=== PATIENT | female | born 1965 | race Caucasian/White ===

== ENCOUNTER 2022-10-17 13:16 | Outpatient (AMB) | payer BC, SELFPAY ==
--- NOTE | 2022-10-17 13:23 | A.OFFVIS_ITS ---
Intake Vital Signs 10/17/22 13:24 Weight 153 lb 3.54 oz BP 98/56 L Blood Pressure Location Lt brachial Position Sitting Pulse 84 Pulse Source Pulse Oximeter Pulse Oximetry (%) 97 Intake Visit Reasons: Shortness of breath Intake Note: due to finish prednisone 10mg in 2 days, will need refill on combivent if she is to continue Allergies No Known Allergies Allergy (Verified 10/17/22 13:27) Medication List - Last Reconciled 10/17/22 by Brianna Burris LPN atorvastatin 20 mg PO DAILY budesonide-formoterol 160-4.5 mcg/actuation (Symbicort) 2 puffs inhalation BID ipratropium-albuterol 20-100 mcg/actuation (Combivent Respimat) 1 puff inhalation Q4H sertraline 100 mg PO DAILY trazodone 50 mg PO DAILY HPI Shortness of breath HPI Details Stephanie is a pleasant 57 year old female, former smoker with 30 pack year history, quit March 2022, with underlying history of asthma and recent dx of SHANNON, not on CPAP therapy. She was referred by PCP for pulmonary evaluation. She reports since 12/2020, she has had a persistent cough with associated chest tightness, wheezing and dyspnea with exertion. She has been treated with prednisone with excellent response, but a few days to a week after completing taper, her symptoms return. She was also was treated recently with doxycycline and then augmentin for continued nonproductive cough with minimal improvement. She is currently on 10 mg of prednisone and will finish tomorrow. She is fearful that her symptoms will return. She was also recently started on symbicort, which she has been taking consistently for the past two weeks along with combivent PRN with good effect. She denies any any history of childhood asthma. She denies any family history of lung conditions, other than son with asthma. She reports intermittent allergic symptoms but none that are bothersome. She denies any pets. She denies any occupational exposures. She was also referred to discuss recent home sleep study which revealed moderate obstructive sleep apnea. She has not been started on CPAP therapy and is interested in starting the process. She currently reports significant daytime fatigue. She has had recent PFT, report below, as well as chest CT which we will request from PCP. [facility] Social History (Updated 08/15/23 @ 13:31 by Brianna Burris LPN) Patient Tobacco Use Status: Former Tobacco user Tobacco use type: Cigarette Cigarette Packs Per Day: 1 Cigarettes Per Day: 20 Years Smoked: 30 Review of Systems Const Denies chills, Denies excessive sweating, Denies fever(s), Denies headache(s) and Denies night sweats Eyes Denies dry eyes, Denies irritation and Denies itchy eyes ENT Reports Normal hearing present, Denies headache(s), Denies nasal congestion, Denies nasal discharge, Denies post nasal drip and Denies sore throat Card Denies chest pain, Denies chest pain at rest, Denies chest pain with activity, Denies claudication, Denies leg edema, Denies dyspnea, Denies orthopnea and Denies paroxysmal nocturnal dyspnea Resp Denies chest congestion, Denies excessive phlegm production, Denies pain on inspiration, Denies pain with cough, Denies dyspnea and Denies stridor Musc Denies myalgias Neuro Reports Normal hearing present and Denies headache(s) Endo Denies excessive sweating Jose A/Lymph Denies lymphadenopathy Aller/Immun Denies itchy eyes and Denies seasonal rhinorrhea Physical Exam Vital Signs: Last Vital Signs Pulse 84 10/17/22 13:24 BP 98/56 L 10/17/22 13:24 Pulse Ox 97 10/17/22 13:24 Const General: cooperative, healthy appearing, comfortable, no acute distress, well developed and alert Orientation/consciousness: patient oriented x3 Limitations: no limitations HEENT Head: Yes normal to inspection, Yes normocephalic and Yes atraumatic Ears: hearing grossly normal bilaterally and external ears normal Eyes General: appearance normal, both eyes and all related structures Eyelids: Yes eyelids normal Sclerae: sclerae normal EOM: EOMs intact bilaterally Neck Neck: Yes normal visual inspection and Yes no lymphadenopathy Lymphatic: no lymphadenopathy noted Chest Chest palpation & inspection: normal inspection of the chest Resp Effort & Inspection: normal respiratory effort, able to speak in complete sentences, no audible wheezes, no cough, no stridor, not tachypneic, no tripod positioning and no use of accessory muscles Auscultation: clear to auscultation bilaterally Cardio Jugular venous distension: no JVD Rate: regular rate Rhythm: regular rhythm Skin Other: warm, dry General skin exam: no rashes or lesions noted Neuro General: patient oriented x3 Cranial nerves: Yes Normal hearing present Cognition (Neuro): normal cognition Gait exam (Neuro): Normal gait present Extrem General: Yes normal to inspection, Yes capillary refill normal, Yes no clubbing, cyanosis or edema and Yes no pedal edema Psych Appearance: grossly normal and well kempt Speech and movement: Normal speech and movement present and Clear speech present Affect: normal affect Attitude: cooperative Thought process: Normal thought process present Thought content: Normal thought content present Insight: Good insight present (Psych) Judgement: Good judgement present (Psych) Results Reviewed Results Reviewed: Assessment & Plan Assessment & Plan (1) Asthma: Code(s): J45.909 - Unspecified asthma, uncomplicated (2) Obstructive sleep apnea: Code(s): G47.33 - Obstructive sleep apnea (adult) (pediatric) (3) Chronic cough: Code(s): R05.3 - Chronic cough Plan Reviewed PFT findings which revealed normal spirometry with good response to bronchodilaters, normal lung volumes and DLCO of 79. Full report above. Discussed the possibility of increasing symbicort and additional prednisone course, if symptoms return when prednisone taper ends. Patient aware to call. According to patient she is in a lung cancer screening program with PCP through [employer] [facility]) and has nodules, unsure size, that are stable and being monitored. Will obtain chest CT from PCP. CXR from 09/24/22 revealed streaky opacities and recommended follow up for resolution. Will send for repeat CXR in 6 weeks. Reviewed home sleep study which revealed an AHI of 23.4 reflective of moderate obstructive sleep apnea. The report recommended in lab polysomnography due to decreased oxygen saturation of <88% for 43 minutes, otherwise was generally between 88-91%. Will send for in lab study with evaluation of end tidal CO2. All questions were answered and patient is in agreement of plan. Will follow up after sleep study. Orders: Orders RT PSG in-lab sleep study Today G47.33 - Obstructive sleep apnea (adult) (pediatric), R09.02 - Hypoxemia XR chest 2V 11/29/22 R05.3 - Chronic cough Medications: New ipratropium-albuterol 20-100 mcg/actuation (Combivent Respimat) 1 puff inhalation Q4H 1 ea 3RF budesonide-formoterol 80-4.5 mcg/actuation (Symbicort) 2 puffs inhalation Q12H 3 ea 3RF Coding Level of Care Code New Pt Level 4 (86830) Diagnoses Asthma J45.909 Obstructive sleep apnea G47.33 Chronic cough R05.3
[2022-10-17 13:24] VITALS: BP 98/56; PULSE 84; O2SAT 97
== END 2022-10-17 14:14 | disposition home or self-care (01) ==
PROVIDERS: PCP Internal Medicine; Referring Provider Internal Medicine; Visit Provider Nurse Practitioner Family
DX: J45.909 Unspecified asthma, uncomplicated (principal); G47.33 Obstructive sleep apnea (adult) (pediatric); R05.3 Chronic cough
CPT/HCPCS: 99204

== ENCOUNTER → 2022-10-17 13:16 | Outpatient (BNVA) | payer BC, SELFPAY | PROVIDERS: PCP Internal Medicine; Visit Provider Nurse Practitioner Family ==

== ENCOUNTER → 2022-11-02 19:30 | Outpatient (REF) | payer BC, SELFPAY | LOC: HO.SL 19:30 | PROVIDERS: Visit Provider Nurse Practitioner Family | DX: G47.33 Obstructive sleep apnea (adult) (pediatric) (principal); R09.02 Hypoxemia | CPT/HCPCS: 95810 ==

== ENCOUNTER → 2022-11-02 22:48 | Outpatient (BNV) | payer BC, SELFPAY | PROVIDERS: Visit Provider Psychiatry & Neurology Neurology | DX: G47.33 Obstructive sleep apnea (adult) (pediatric) (principal) | CPT/HCPCS: 95810 ==

== ENCOUNTER 2022-12-20 08:11 | Outpatient (AMB) | payer BC, SELFPAY ==
--- NOTE | 2022-12-20 08:16 | A.OFFVIS_ITS ---
Intake Vital Signs 3 12/20/22 08:17 Height 5 ft 2 in Weight 155 lb BMI 28.3 BP 124/62 Blood Pressure Location Rt brachial Position Sitting Pulse 78 Pulse Source Pulse Oximeter Pulse Oximetry (%) 97 Oxygen Delivery Method Room Air Intake Visit Reasons: Shortness of breath Soa Architect Required: No Systems Analyst: Systems Analyst offered & declined Accompanied by: Self / Same As Patient Allergies No Known Allergies Allergy (Verified 12/20/22 08:22) Medication List - Last Reconciled 12/20/22 by Tamiko Chambers LPN atorvastatin 20 mg PO DAILY budesonide-formoterol 80-4.5 mcg/actuation (Symbicort) 2 puffs inhalation Q12H ipratropium-albuterol 20-100 mcg/actuation (Combivent Respimat) 1 puff inhalation Q4H sertraline 100 mg PO DAILY trazodone 50 mg PO DAILY HPI Shortness of breath 2 HPI0 Details Stephanie is a pleasant 57 year old female, former smoker with 30 pack year history, quit March 2022, with underlying history of asthma and SHANNON, not currently on CPAP therapy. At the last visit, she was placed on symbicort as she had a persistent cough with associated chest tightness, wheezing and dyspnea with exertion. Since using symbicort consistently she reports complete resolution of symptoms and has used combivent very infrequently.Today she presents for review in lab sleep study results. [facility] Social History (Updated 12/20/22 @ 08:23 by Tamiko Chambers LPN) Patient Tobacco Use Status: Former Tobacco user Tobacco use type: Cigarette Cigarette Packs Per Day: 1 Cigarettes Per Day: 20 Years Smoked: 30 Review of Systems Const Denies chills, Denies excessive sweating, Denies fever(s), Denies headache(s) and Denies night sweats Eyes Denies dry eyes, Denies irritation and Denies itchy eyes ENT Reports Normal hearing present, Denies headache(s), Denies nasal congestion, Denies nasal discharge, Denies post nasal drip and Denies sore throat Card Denies chest pain, Denies chest pain at rest, Denies chest pain with activity, Denies claudication, Denies leg edema, Denies dyspnea, Denies dyspnea on exertion, Denies orthopnea and Denies paroxysmal nocturnal dyspnea Resp Denies chest congestion, Denies cough, Denies excessive phlegm production, Denies pain on inspiration, Denies pain with cough, Denies dyspnea, Denies dyspnea on exertion, Denies stridor and Denies wheezing Musc Denies myalgias Neuro Reports Normal hearing present and Denies headache(s) Endo Denies excessive sweating Jose A/Lymph Denies lymphadenopathy Aller/Immun Denies itchy eyes, Denies seasonal rhinorrhea and Denies wheezing Physical Exam Vital Signs: Last Vital Signs Pulse 78 12/20/22 08:17 BP 124/62 12/20/22 08:17 Pulse Ox 97 12/20/22 08:17 Oxygen Delivery Method Room Air 12/20/22 08:17 BMI result Body Mass Index 28.3 Const General: cooperative, healthy appearing, comfortable, no acute distress, well developed and alert Orientation/consciousness: patient oriented x3 Limitations: no limitations HEENT Head: Yes normal to inspection, Yes normocephalic and Yes atraumatic Ears: hearing grossly normal bilaterally and external ears normal Eyes General: appearance normal, both eyes and all related structures Eyelids: Yes eyelids normal Sclerae: sclerae normal EOM: EOMs intact bilaterally Neck Neck: Yes normal visual inspection and Yes no lymphadenopathy Lymphatic: no lymphadenopathy noted Chest Chest palpation & inspection: normal inspection of the chest Resp Effort & Inspection: normal respiratory effort, able to speak in complete sentences, no audible wheezes, no cough, no stridor, not tachypneic, no tripod positioning and no use of accessory muscles Auscultation: clear to auscultation bilaterally Cardio Jugular venous distension: no JVD Rate: regular rate Rhythm: regular rhythm Skin Other: warm, dry General skin exam: no rashes or lesions noted Neuro General: patient oriented x3 Cranial nerves: Yes Normal hearing present Cognition (Neuro): normal cognition Gait exam (Neuro): Normal gait present Extrem General: Yes normal to inspection, Yes capillary refill normal, Yes no clubbing, cyanosis or edema and Yes no pedal edema Psych Appearance: grossly normal and well kempt Speech and movement: Normal speech and movement present and Clear speech present Affect: normal affect Attitude: cooperative Thought process: Normal thought process present Thought content: Normal thought content present Insight: Good insight present (Psych) Judgement: Good judgement present (Psych) Results Reviewed Results Reviewed: Assessment & Plan Assessment & Plan (1) Asthma: Code(s): J45.909 - Unspecified asthma, uncomplicated (2) Obstructive sleep apnea: Code(s): G47.33 - Obstructive sleep apnea (adult) (pediatric) (3) Nocturnal hypoxemia: Code(s): G47.34 - Idiopathic sleep related nonobstructive alveolar hypoventilation Plan Reviewed in lab sleep study which revealed moderate obstructive sleep apnea and nocturnal hypoxia, full report above. Since patient is quite symptomatic, will start CPAP therapy. Will send in prescription for APAP mode and pressure settings of 5-20 cm with close monitoring for compliance and benefits. Sleep hygiene education reviewed. She is aware if there are any issues with the mask or CPAP machine, she will call the office. Advised to continue current regimen with symbicort and combivent PRN. Will obtain CXR to ensure complete resolution of streaky opacities, she is requesting this to be performed at [facility]. All questions were answered and patient is in agreement of plan. Will follow up in 8 weeks. Coding Level of Care Code Est Pt Level 4 (28535) Diagnoses Asthma J45.909 Obstructive sleep apnea G47.33 Nocturnal hypoxemia G47.34
[2022-12-20 08:17] VITALS: BP 124/62; PULSE 78; O2SAT 97; BMI 28.3
== END 2022-12-20 08:44 | disposition home or self-care (01) ==
LOC: HO.HPS 08:11
PROVIDERS: PCP Internal Medicine; Visit Provider Nurse Practitioner Family
DX: J45.909 Unspecified asthma, uncomplicated (principal); G47.33 Obstructive sleep apnea (adult) (pediatric); G47.34 Idiopathic sleep related nonobstructive alveolar hypoventilation
CPT/HCPCS: 99214

== ENCOUNTER → 2022-12-20 08:11 | Outpatient (BNVA) | payer BC, SELFPAY | PROVIDERS: PCP Internal Medicine; Visit Provider Nurse Practitioner Family ==

== ENCOUNTER 2023-02-14 09:13 | Outpatient (AMB) | payer BC, SELFPAY ==
[2023-02-14 09:29] VITALS: BP 132/78; PULSE 78; O2SAT 97; BMI 29.1
--- NOTE | 2023-02-14 09:29 | MHC.OFFVIS ---
Intake Vital Signs 02/14/23 09:29 Height 5 ft 2 in Weight 159 lb BMI 29.1 BP 132/78 Blood Pressure Location Rt brachial Position Sitting Pulse 78 Pulse Source Pulse Oximeter Pulse Oximetry (%) 97 Oxygen Delivery Method Room Air Intake Visit Reasons: shortness of breath : 8 week f/u Staff Weapons Officer Required: No Residential Electrician: Residential Electrician offered & declined Accompanied by: Self / Same As Patient Allergies No Known Allergies Allergy (Verified 02/14/23 09:36) Medication List - Last Reconciled 02/14/23 by Tamiko Chambers LPN atorvastatin 20 mg PO DAILY budesonide-formoterol 80-4.5 mcg/actuation (Symbicort) 2 puffs inhalation Q12H ipratropium-albuterol 20-100 mcg/actuation (Combivent Respimat) 1 puff inhalation Q4H sertraline 100 mg PO DAILY trazodone 50 mg PO DAILY HPI shortness of breath : 8 week f/u HPI Details Stephanie is a pleasant 57 year old female, former smoker with 30 pack year history, quit March 2022, with underlying history of asthma and SHANNON. She reports her respiratory symptoms are well controlled on Symbicort. At the last visit, CPAP therapy was ordered. Today she presents to review CPAP therapy. She reports using a nasal mask and receives supplies through [facility]. She feels as though she has restorative sleep since starting and has not had any issues with use. She currently denies any respiratory symptoms. [facility] Social History (Updated 02/14/23 @ 09:38 by Tamiko Chambers LPN) Patient Tobacco Use Status: Former Tobacco user Tobacco use type: Cigarette Cigarette Packs Per Day: 1 Cigarettes Per Day: 20 Years Smoked: 30 Review of Systems Const Denies chills, Denies excessive sweating, Denies fever(s), Denies headache(s) and Denies night sweats Eyes Denies dry eyes, Denies irritation and Denies itchy eyes ENT Reports Normal hearing present, Denies headache(s), Denies nasal congestion, Denies nasal discharge, Denies post nasal drip and Denies sore throat Card Denies chest pain, Denies chest pain at rest, Denies chest pain with activity, Denies claudication, Denies leg edema, Denies dyspnea, Denies dyspnea on exertion, Denies orthopnea and Denies paroxysmal nocturnal dyspnea Resp Denies chest congestion, Denies cough, Denies excessive phlegm production, Denies pain on inspiration, Denies pain with cough, Denies dyspnea, Denies dyspnea on exertion, Denies stridor and Denies wheezing Musc Denies myalgias Neuro Reports Normal hearing present and Denies headache(s) Endo Denies excessive sweating Jose A/Lymph Denies lymphadenopathy Aller/Immun Denies itchy eyes, Denies seasonal rhinorrhea and Denies wheezing Physical Exam Vital Signs: Last Vital Signs Pulse 78 02/14/23 09:29 BP 132/78 02/14/23 09:29 Pulse Ox 97 02/14/23 09:29 Oxygen Delivery Method Room Air 02/14/23 09:29 BMI result Body Mass Index 29.1 Const General: cooperative, healthy appearing, comfortable, no acute distress, well developed and alert Orientation/consciousness: patient oriented x3 Limitations: no limitations HEENT Head: Yes normal to inspection, Yes normocephalic and Yes atraumatic Ears: hearing grossly normal bilaterally and external ears normal Eyes General: appearance normal, both eyes and all related structures Eyelids: Yes eyelids normal Sclerae: sclerae normal EOM: EOMs intact bilaterally Neck Neck: Yes normal visual inspection and Yes no lymphadenopathy Lymphatic: no lymphadenopathy noted Chest Chest palpation & inspection: normal inspection of the chest Resp Effort & Inspection: normal respiratory effort, able to speak in complete sentences, no audible wheezes, no cough, no stridor, not tachypneic, no tripod positioning and no use of accessory muscles Auscultation: clear to auscultation bilaterally Cardio Jugular venous distension: no JVD Rate: regular rate Rhythm: regular rhythm Skin Other: warm, dry General skin exam: no rashes or lesions noted Neuro General: patient oriented x3 Cranial nerves: Yes Normal hearing present Cognition (Neuro): normal cognition Gait exam (Neuro): Normal gait present Extrem General: Yes normal to inspection, Yes capillary refill normal, Yes no clubbing, cyanosis or edema and Yes no pedal edema Psych Appearance: grossly normal and well kempt Speech and movement: Normal speech and movement present and Clear speech present Affect: normal affect Attitude: cooperative Thought process: Normal thought process present Thought content: Normal thought content present Insight: Good insight present (Psych) Judgement: Good judgement present (Psych) Assessment & Plan Assessment & Plan (1) Asthma: Code(s): J45.909 - Unspecified asthma, uncomplicated (2) Obstructive sleep apnea: Code(s): G47.33 - Obstructive sleep apnea (adult) (pediatric) Plan Patient reports respiratory symptoms have been controlled on symbicort, advised to continue current regimen. Reviewed compliance report and patient has been using CPAP therapy >4 hours for >70% of the time. She feels symptomatic relief with CPAP therapy and is enthusiastic about continuing. She is aware if there are any issues with the mask or CPAP machine, she will call the office. Once using for 3-6 months, will send for overnight oximetry to ensure CPAP therapy has corrected nocturnal hypoxia. All questions were answered and patient is in agreement of plan. Will follow up in 6 months or sooner if needed. Coding Level of Care Code Est Pt Level 3 (90293) Diagnoses Asthma J45.909 Obstructive sleep apnea G47.33
== END 2023-02-14 09:56 | disposition home or self-care (01) ==
PROVIDERS: PCP Internal Medicine; Visit Provider Nurse Practitioner Family
DX: J45.909 Unspecified asthma, uncomplicated (principal); G47.33 Obstructive sleep apnea (adult) (pediatric)
CPT/HCPCS: 99213

== ENCOUNTER → 2023-02-14 09:13 | Outpatient (BNVA) | payer BC, SELFPAY | PROVIDERS: PCP Internal Medicine; Visit Provider Nurse Practitioner Family ==

== ENCOUNTER 2023-08-15 09:22 | Outpatient (AMB) | payer BC, SELFPAY ==
--- NOTE | 2023-08-15 09:27 | A.OFFVIS_ITS ---
Vital Signs 08/15/23 09:28 Height 5 ft 2 in Weight 161 lb 6 oz BMI 29.5 BP 110/70 Blood Pressure Location Rt brachial Position Sitting Pulse 72 Pulse Source Pulse Oximeter Pulse Oximetry (%) 98 Oxygen Delivery Method Room Air Intake Visit Reasons: shortness of breath: 6 month f/u Allergies No Known Allergies Allergy (Verified 08/15/23 09:32) HPI HPI shortness of breath: 6 month f/u: Details: Stephanie is a pleasant 58 year old female, current smoker with 30 pack year history, quit March 2022 however restarted recently with underlying history of asthma and SHANNON. She reports her respiratory symptoms are well controlled on Symbicort . Today she presents to review compliance with CPAP therapy. She reports using a nasal mask and receives supplies through [facility]. She reports good symptomatic control with CPAP therapy and currently denies any respiratory symptoms. Since the last visit, she was evaluated at urgent care in May requiring prednisone due to asthma exacerbation. [facility] Social History (Updated 08/15/23 @ 09:32 by Bhavya Ruelas [facility]) Patient Tobacco Use Status: Current everyday Tobacco user Tobacco use type: Cigarette Cigarette Packs Per Day: 0.5 Cigarettes Per Day: 10 Years Smoked: 30 Review of Systems Const Denies chills, Denies excessive sweating, Denies fever(s), Denies headache(s) and Denies night sweats Eyes Denies dry eyes, Denies irritation and Denies itchy eyes ENT Reports Normal hearing present, Denies headache(s), Denies nasal congestion, Denies nasal discharge, Denies post nasal drip and Denies sore throat Card Denies chest pain, Denies chest pain at rest, Denies chest pain with activity, Denies claudication, Denies leg edema, Denies dyspnea, Denies dyspnea on ex ertion, Denies orthopnea and Denies paroxysmal nocturnal dyspnea Resp Denies chest congestion, Denies cough, Denies excessive phlegm production, Denies pain on inspiration, Denies pain with cough, Denies dyspnea, Denies dyspnea on exertion, Denies stridor and Denies wheezing Neuro Reports Normal hearing present and Denies headache(s) Endo Denies excessive sweating Jose A/Lymph Denies lymphadenopathy Aller/Immun Denies itchy eyes, Denies seasonal rhinorrhea and Denies wheezing Physical Exam Vital Signs: Last Vital Signs Pulse 72 08/15/23 09:28 BP 110/70 08/15/23 09:28 Pulse Ox 98 08/15/23 09:28 Oxygen Delivery Method Room Air 08/15/23 09:28 BMI result Body Mass Index 29.5 Const General: cooperative, healthy appearing, comfortable, no acute distress, well developed and alert Orientation/consciousness: patient oriented x3 Limitations: no limitations HEENT Head: Yes normal to inspection, Yes normocephalic and Yes atraumatic Ears: hearing grossly normal bilaterally and external ears normal Eyes General: appearance normal, both eyes and all related structures Eyelids: Yes eyelids normal Sclerae: sclerae normal EOM: EOMs intact bilaterally Neck Neck: Yes normal visual inspection and Yes no lymphadenopathy Lymphatic: no lymphadenopathy noted Chest Chest palpation & inspection: normal inspection of the chest Resp Effort & Inspection: normal respiratory effort, able to speak in complete sentences, no audible wheezes, no cough, no stridor, not tachypneic, no tripod positioning and no use of accessory muscles Auscultation: clear to auscultation bilaterally Cardio Jugular venous distension: no JVD Rate: regular rate Rhythm: regular rhythm Skin Other: warm, dry General skin exam: no rashes or lesions noted Neuro General: patient oriented x3 Cranial nerves: Yes Normal hearing present Cognition (Neuro): normal cognition Gait exam (Neuro): Normal gait present Extrem Other: right ankle orthotic s/p ankle fracture repair Psych Appearance: grossly normal and well kempt Speech and movement: Normal speech and movement present and Clear speech present Affect: normal affect Attitude: cooperative Thought process: Normal thought process present Thought content: Normal thought content present Insight: Good insight present (Psych) Judgement: Good judgement present (Psych) Assessment & Plan Assessment & Plan (1) Asthma: Code(s): J45.909 - Unspecified asthma, uncomplicated Category: Medical (2) Obstructive sleep apnea: Code(s): G47.33 - Obstructive sleep apnea (adult) (pediatric) Category: Medical (3) Nocturnal hypoxemia: Code(s): G47.34 - Idiopathic sleep related nonobstructive alveolar hypoventilation Category: Medical Plan Patient reports respiratory symptoms have been controlled on symbicort, advised to continue current regimen.Will send refills. Reviewed compliance report and patient has been using CPAP therapy >4 hours for >70% of the time, minimal leaks and AHI <2. Will send for overnight oximetry to ensure CPAP therapy has corrected nocturnal hypoxia. All questions were answered and patient is in agreement of plan. Will follow up in 6 months or sooner if needed. Orders: Orders Overnight Pulse Oximetry Today G47.34 - Idiopathic sleep related nonobstructive alveolar hypoventilation Medications: Refilled ipratropium-albuterol 20-100 mcg/actuation (Combivent Respimat) 1 puff inhalation Q4H 1 ea 3RF budesonide-formoterol 80-4.5 mcg/actuation (Symbicort) 2 puffs inhalation Q12H 3 ea 3RF Coding Level of Care Code Est Pt Level 4 (49035) Diagnoses Asthma J45.909 Obstructive sleep apnea G47.33 Nocturnal hypoxemia G47.34
[2023-08-15 09:28] VITALS: BP 110/70; PULSE 72; O2SAT 98; BMI 29.5
== END 2023-08-15 10:01 | disposition home or self-care (01) ==
PROVIDERS: PCP Internal Medicine; Visit Provider Nurse Practitioner Family
DX: J45.909 Unspecified asthma, uncomplicated (principal); G47.33 Obstructive sleep apnea (adult) (pediatric); G47.34 Idiopathic sleep related nonobstructive alveolar hypoventilation
CPT/HCPCS: 99214

== ENCOUNTER → 2023-08-15 09:22 | Outpatient (BNVA) | payer BC, SELFPAY | PROVIDERS: PCP Internal Medicine; Visit Provider Nurse Practitioner Family ==

== ENCOUNTER 2024-02-13 09:14 | Outpatient (AMB) | payer BC, SELFPAY ==
[2024-02-13 09:15] VITALS: BP 112/68; PULSE 71; O2SAT 97; BMI 30.6
--- NOTE | 2024-02-13 09:15 | A.OFFVIS_ITS ---
Vital Signs 02/13/24 09:15 Height 5 ft 2 in Weight 167 lb 8 oz BMI 30.6 BP 112/68 Blood Pressure Location Rt brachial Position Sitting Pulse 71 Pulse Source Pulse Oximeter Pulse Oximetry (%) 97 Oxygen Delivery Method Room Air Intake Visit Reasons: shortness of breath: 6 month f/u Allergies No Known Allergies Allergy (Verified 02/13/24 09:18) HPI HPI shortness of breath: 6 month f/u: Details: Stephanie is a pleasant 58 year old female, current smoker with 30 pack year history with underlying history of asthma and SHANNON on CPAP therapy. Today she presents to for routine follow up. She reports her respiratory symptoms are well controlled on Symbicort and albuterol MDI. She denies any visits to urgent care hospitalizations related to respiratory distress since the last visit. Compliance report reviewed, patient has been using >4 hours 60% of the time on average using 6 hours per night, AHI less than 1 with minimal leaking. APAP mode 5-16 cm H2O. DME is regional. PFSH Social History Patient Tobacco Use Status: Current everyday Tobacco user Tobacco use type: Cigarette Cigarette Packs Per Day: 0.5 Cigarettes Per Day: 10 Years Smoked: 30 Review of Systems Const Denies chills, Denies excessive sweating, Denies fever(s), Denies headache(s) and Denies night sweats Eyes Denies dry eyes, Denies irritation and Denies itchy eyes ENT Reports Normal hearing present, Denies headache(s), Denies nasal congestion, Denies nasal discharge, Denies post nasal drip and Denies sore throat Card Denies chest pain, Denies chest pain at rest, Denies chest pain with activity, Denies claudication, Denies leg edema, Denies dyspnea, Denies dyspnea on exertion, Denies orthopnea and Denies paroxysmal nocturnal dyspnea Resp Denies chest congestion, Denies cough, Denies excessive phlegm production, Denies pain on inspiration, Denies pain with cough, Denies dyspnea, Denies dyspnea on exertion, Denies stridor and Denies wheezing Neuro Reports Normal hearing present and Denies headache(s) Endo Denies excessive sweating Jose A/Lymph Denies lymphadenopathy Aller/Immun Denies itchy eyes, Denies seasonal rhinorrhea and Denies wheezing Physical Exam Vital Signs: Last Vital Signs Pulse 71 02/13/24 09:15 BP 112/68 02/13/24 09:15 Pulse Ox 97 02/13/24 09:15 Oxygen Delivery Method Room Air 02/13/24 09:15 BMI result Body Mass Index 30.6 Const General: cooperative, healthy appearing, comfortable, no acute distress, well developed and alert Orientation/consciousness: patient oriented x3 Limitations: no limitations HEENT Head: Yes normal to inspection, Yes normocephalic and Yes atraumatic Ears: hearing grossly normal bilaterally and external ears normal Eyes General: appearance normal, both eyes and all related structures Eyelids: Yes eyelids normal Sclerae: sclerae normal EOM: EOMs intact bilaterally Neck Neck: Yes normal visual inspection and Yes no lymphadenopathy Lymphatic: no lymphadenopathy noted Chest Chest palpation & inspection: normal inspection of the chest Resp Effort & Inspection: normal respiratory effort, able to speak in complete sentences, no audible wheezes, no cough, no stridor, not tachypneic, no tripod positioning and no use of accessory muscles Auscultation: clear to auscultation bilaterally Cardio Jugular venous distension: no JVD Rate: regular rate Rhythm: regular rhythm Skin Other: warm, dry General skin exam: no rashes or lesions noted Neuro General: patient oriented x3 Cranial nerves: Yes Normal hearing present Cognition (Neuro): normal cognition Gait exam (Neuro): Normal gait present Psych Appearance: grossly normal and well kempt Speech and movement: Normal speech and movement present and Clear speech present Affect: normal affect Attitude: cooperative Thought process: Normal thought process present Thought content: Normal thought content present Insight: Good insight present (Psych) Judgement: Good judgement present (Psych) Results Reviewed Results Reviewed: RESULT: CT Chest LDCT Lung Program CT Chest LDCT Lung Program Reason: Other:; LDCT LUNG CANCER SCREENING PROGRAM, CURRENT SMOKER, 39 PACK YEAR HX; Clinical Question(s): Other:; Special Instructions: BOOK AT [address] [place] [address] BOOK AFTER 05 [address] IN THE LAST 12 MONTHS NO LUNG CA OR SIGNS AND SYMPTOMS OF LUNG CA Visit type: Annual Screening TECHNIQUE: Low-dose helical CT of the chest without IV contrast (Adult Lung Cancer Screening) protocol was performed. Coronal reformats were obtained. Weight-based protocol using automatic tube modulation was used to optimize exposure parameters. CTDIvol Body: 2.84 mGy, DLP Body: 90 mGy*cm. COMPARISON: 05/30/2022 FINDINGS: LUNG NODULES: RIGHT lung: No new pulmonary nodules. Unchanged in size and appearance 6 x 5 mm nodule in the right lower lobe series 4 image 222, compared to prior exam series 4 image 214. Unchanged granulomas, 2 mm in the right lower lobe image 188 and at the right apex at image 58 and 88. LEFT lun new groundglass nodules measuring 4 mm and 5 mm at series 4 image 84 in the medial aspect of the superior segment of the left lower lobe. OTHER FINDINGS: Trachea and Airways: Patent without evidence of tracheal or endobronchial lesion. Lungs and Pleura: Very minimal paraseptal emphysema at the apices. Left lung base atelectasis or scarring, minimal and unchanged. No pneumothorax or pleural effusion. Mediastinum and Lymph nodes: No enlarged lymph nodes. Esophagus is unremarkable. Partially seen thyroid gland shows subcentimeter left nodule, not meeting criteria for further evaluation based on size. Next Heart: Normal cardiac size. No pericardial effusion. No coronary artery calcifications. Aorta: Mild vascular calcification but no aneurysm. Pulmonary arteries: Nonenlarged main pulmonary artery. Chest wall and Soft tissues: No axillary adenopathy. No acute abnormality. Diaphragm and Upper Abdomen: Limited images of the upper most abdomen show no acute abnormality. There is a small splenic. Bones: No suspicious osseous abnormalities. Healed deformity of remote left anterolateral rib fracture, unchanged. Mild diffuse osteopenia. IMPRESSION: 1. 2 new groundglass nodules in the left lower lobe, 4 mm and 5 mm. LungRad Category: 2 Benign Appearance or Behavior. Nodules with a very low likelihood of becoming a clinically active cancer due to size or lack of growth. Continue annual screening with LDCT in 12 months. 2. No significant additional findings requiring further evaluation. Lung-RAD Category Modifier: None. Categorization based on Lung-RADS 2022 criteria. [email or web address] WSN: [id number] Ordering Physician: Chalino Villela Assessment & Plan Assessment & Plan (1) Asthma: Code(s): J45.909 - Unspecified asthma, uncomplicated Category: Medical (2) Obstructive sleep apnea: Code(s): G47.33 - Obstructive sleep apnea (adult) (pediatric) Category: Medical (3) Multiple pulmonary nodules: Code(s): R91.8 - Other nonspecific abnormal finding of lung field Category: Medical Plan Reviewed LDCT from 05/2023-RADS 2 through [facility]. Patient reports respiratory symptoms have been well controlled on symbicort and combivent, advised to continue current regimen.Will send refills. Reviewed compliance report and patient has been using CPAP therapy >4 hours for >60% of the time, minimal leaks and AHI <1. Patient motivated to be more compliant. Discussed smoking cessation and patient interested in NRT. Patches and and nicorette rx sent. All questions were answered and patient is in agreement of plan. Will follow up in 6 months or sooner if needed. Medications: New nicotine apply 1-21 mg NICOTINE PATCH daily for 28 days; follow with 1-14 mg PATCH daily for 14 days, then 1-7mg PATCH daily for 14 days transdermal 56 patches 0RF nicotine (polacrilex) (Nicorette) 2 mg buccal Q2H 50 ea 0RF Refilled ipratropium-albuterol 20-100 mcg/actuation (Combivent Respimat) 1 puff inhalation Q4H 1 ea 3RF budesonide-formoterol 80-4.5 mcg/actuation (Symbicort) 2 puffs inhalation Q12H 3 ea 3RF J45.909 - Unspecified asthma, uncomplicated budesonide-formoterol 80-4.5 mcg/actuation (Symbicort) 2 puffs inhalation Q12H 3 ea 3RF Coding Level of Care Code Est Pt Level 4 (81908) Diagnoses Asthma J45.909 Obstructive sleep apnea G47.33 Multiple pulmonary nodules R91.8
== END 2024-02-13 09:43 | disposition home or self-care (01) ==
PROVIDERS: PCP Internal Medicine; Visit Provider Nurse Practitioner Family
DX: J45.909 Unspecified asthma, uncomplicated (principal); G47.33 Obstructive sleep apnea (adult) (pediatric); R91.8 Other nonspecific abnormal finding of lung field
CPT/HCPCS: 99214

== ENCOUNTER 2024-09-19 14:16 | Outpatient (AMB) | payer BC, SELFPAY ==
--- NOTE | 2024-09-19 14:18 | MHC.OFFVIS ---
Vital Signs 09/19/24 14:19 Height 5 ft 2 in Weight 157 lb BMI 28.7 BP 122/66 Blood Pressure Location Rt brachial Position Sitting Pulse 72 Pulse Source Pulse Oximeter Pulse Oximetry (%) 99 Oxygen Delivery Method Room Air Intake Visit Reasons: Shortness of breath Cryptologic Technician Operator/Analyst Required: No Name Plate Stamping Machine Operator: Name Plate Stamping Machine Operator offered & declined Accompanied by: Self / Same As Patient Allergies No Known Allergies Allergy (Verified 09/19/24 14:24) Medication List - Last Reconciled 09/19/24 by Tamiko Chambers LPN atorvastatin 20 mg PO DAILY budesonide-formoterol 80-4.5 mcg/actuation 2 puffs inhalation Q12H ipratropium-albuterol 20-100 mcg/actuation (Combivent Respimat) 1 puff inhalation Q4H nicotine apply 1-21 mg NICOTINE PATCH daily for 28 days; follow with 1-14 mg PATCH daily for 14 days, then 1-7mg PATCH daily for 14 days transdermal nicotine (polacrilex) (Nicorette) 2 mg buccal Q2H sertraline 100 mg PO DAILY trazodone 50 mg PO DAILY HPI HPI Shortness of breath: Details: Stephanie is a pleasant 59 year old female, current smoker with 30 pack year history with underlying history of asthma and SHANNON on CPAP therapy. Today she presents to for routine follow up. She reports increased use of Combivent every four hours during humid periods, although she has not needed it for the past couple of weeks. Symptoms included shortness of breath and chest tightness, which improved with better weather conditions. She denies any visits to urgent care hospitalizations related to respiratory distress since the last visit. Compliance report reviewed, patient has been using >4 hours 90% of the time, AHI less than 1 with minimal leaking. APAP mode 5-16 cm H2O. DME is regional. She experiences occasional mask leakage and facial indentations but reports feeling more energetic with CPAP use. The patient has a history of tobacco use disorder and is currently smoking about half a pack per day, with variations depending on conditions such as humidity. She has previously used Chantix successfully and plans to restart it soon. LDCT through [facility] performed which revealed a stable nodule in the right lower lobe and resolved nodules in the left lower lobe, likely due to a past infection or inflammation, RADS 2 and will have annual LDCT scheduled 05/2025. [facility] Social History Patient Tobacco Use Status: Current everyday Tobacco user Tobacco use type: Cigarette Cigarette Packs Per Day: 0.5 Cigarettes Per Day: 10 Years Smoked: 30 Review of Systems Const Denies chills, Denies excessive sweating, Denies fever(s), Denies headache(s) and Denies night sweats Eyes Denies dry eyes, Denies irritation and Denies itchy eyes ENT Reports Normal hearing present, Denies headache(s), Denies nasal congestion, Denies nasal discharge, Denies post nasal drip and Denies sore throat Card Denies chest pain, Denies chest pain at rest, Denies chest pain with activity, Denies claudication, Denies leg edema, Denies orthopnea and Denies paroxysmal nocturnal dyspnea Resp Denies chest congestion, Denies excessive phlegm production, Denies pain on inspiration, Denies pain with cough and Denies stridor Neuro Reports Normal hearing present and Denies headache(s) Endo Denies excessive sweating Jose A/Lymph Denies lymphadenopathy Aller/Immun Denies itchy eyes and Denies seasonal rhinorrhea Physical Exam Vital Signs: Last Vital Signs Pulse 72 09/19/24 14:19 BP 122/66 09/19/24 14:19 Pulse Ox 99 09/19/24 14:19 Oxygen Delivery Method Room Air 09/19/24 14:19 BMI result Body Mass Index 28.7 Const General: cooperative, healthy appearing, comfortable, no acute distress, well developed and alert Orientation/consciousness: patient oriented x3 Limitations: no limitations HEENT Head: Yes normal to inspection, Yes normocephalic and Yes atraumatic Ears: hearing grossly normal bilaterally and external ears normal Eyes General: appearance normal, both eyes and all related structures Eyelids: Yes eyelids normal Sclerae: sclerae normal EOM: EOMs intact bilaterally Neck Neck: Yes normal visual inspection and Yes no lymphadenopathy Lymphatic: no lymphadenopathy noted Chest Chest palpation & inspection: normal inspection of the chest Resp Effort & Inspection: normal respiratory effort, able to speak in complete sentences, no audible wheezes, no cough, no stridor, not tachypneic, no tripod positioning and no use of accessory muscles Auscultation: clear to auscultation bilaterally Cardio Jugular venous distension: no JVD Rate: regular rate Rhythm: regular rhythm Skin Other: warm, dry General skin exam: no rashes or lesions noted Neuro General: patient oriented x3 Cranial nerves: Yes Normal hearing present Cognition (Neuro): normal cognition Gait exam (Neuro): Normal gait present Psych Appearance: grossly normal and well kempt Speech and movement: Normal speech and movement present and Clear speech present Affect: normal affect Attitude: cooperative Thought process: Normal thought process present Thought content: Normal thought content present Insight: Good insight present (Psych) Judgement: Good judgement present (Psych) Results Reviewed Results Reviewed: RESULT: CT Chest LDCT Lung Program CT Chest LDCT Lung Program Reason: Other:; LDCT LUNG CANCER SCREENING PROGRAM, CURRENT SMOKER, 40 PACK YEAR HX; Clinical Question(s): Other:; Special Instructions: BOOK AT [address] [place] [address] BOOK AFTER 05 [address] IN THE LAST 12 MONTHS NO LUNG CA OR SIGNS AND SYMPTOMS OF LUNG CA Visit type: Annual Screening TECHNIQUE: Low-dose helical CT of the chest without IV contrast (Adult Lung Cancer Screening) protocol was performed. Coronal reformats were obtained. Weight-based protocol using automatic tube modulation was used to optimize exposure parameters. CTDIvol Body: 2.77 mGy, DLP Body: 95 mGy*cm. COMPARISON: 06/01/2023 FINDINGS: LUNG NODULES (measured on thin axial series 4): RIGHT lung: Stable 6 x 5 mm subpleural nodule in the right lower lobe (217) Few scattered micronodules, stable. No new or enlarging nodules. LEFT lung: Resolution of the previously seen two small groundglass nodular opacities in the apical segment of the left lower lobe. No suspicious or new nodules seen. OTHER FINDINGS: Continuous Mining Machine Lode Miner view findings, lines and tubes: None. Trachea and airways: Patent without evidence of tracheal or endobronchial lesion. Lungs and pleura: No focal pulmonary consolidation. Minimal biapical paraseptal and centrilobular emphysema. Minimal left basilar linear scarring. No effusion or pneumothorax. Mediastinum and rhonda: No mass or hematoma. No mediastinal or hilar lymphadenopathy. No esophageal abnormality. Heart: Heart is normal in size. No pericardial effusion. Aorta: Mild vascular calcification but no aneurysm. Pulmonary arteries: Normal caliber. Chest wall soft tissues: No acute abnormality. Diaphragm: Intact. Upper abdomen: Diverticulosis Bones: No acute abnormality. IMPRESSION: 1. LungRad Category: 2 Benign Appearance or Behavior. Nodules with a very low likelihood of becoming a clinically active cancer due to size or lack of growth. Continue annual screening with LDCT in 12 months. 2. S : Significant additional findings likely require further evaluation. Diverticulosis Categorization based on Lung-RADS 2021 criteria. [email or web address] WSN: [id number] Ordering Physician: Chalino Villela Reason For Exam LDCT LUNG CANCER SCREENING PROGRAM, CURRENT SMOKER, 40 PACK YEAR HX;Other: Assessment & Plan Assessment & Plan (1) Asthma: Code(s): J45.909 - Unspecified asthma, uncomplicated Category: Medical (2) Obstructive sleep apnea: Code(s): G47.33 - Obstructive sleep apnea (adult) (pediatric) Category: Medical (3) Multiple pulmonary nodules: Code(s): R91.8 - Other nonspecific abnormal finding of lung field Category: Medical Plan The plan includes increasing the dose of Symbicort to manage respiratory symptoms, with instructions to use two puffs twice daily and rinse the mouth after use. The patient is advised to continue using CPAP therapy and consider trying different masks to address facial indentations and leakage issues. Chantix will be restarted to aid in smoking cessation. LDCT 05/2024 RADS2 and will have annual LDCT scheduled through [facility]. All questions were answered and patient is in agreement of plan. Will follow up in 6-8 weeks or sooner if needed. Medications: New budesonide-formoterol 160-4.5 mcg/actuation (Symbicort) 2 puffs inhalation Q12H 10.2 grams 3RF Changed From ipratropium-albuterol 20-100 mcg/actuation (Combivent Respimat) 1 puff inhalation Q4H 1 ea 3RF To ipratropium-albuterol 20-100 mcg/actuation (Combivent Respimat) 1 puff inhalation Q4H PRN 1 ea 3RF shortness of breath or wheezing Discontinued budesonide-formoterol 80-4.5 mcg/actuation Discontinued Reason: Patient Completed Course 2 puffs inhalation Q12H 10.2 grams 3RF J45.909 - Unspecified asthma, uncomplicated Coding Level of Care Code Est Pt Level 4 (63290) Diagnoses Asthma J45.909 Obstructive sleep apnea G47.33 Multiple pulmonary nodules R91.8
[2024-09-19 14:19] VITALS: BP 122/66; PULSE 72; O2SAT 99; BMI 28.7
== END 2024-09-19 14:44 | disposition home or self-care (01) ==
LOC: HO.HPSW 14:16
PROVIDERS: PCP Internal Medicine; Visit Provider Nurse Practitioner Family
DX: J45.909 Unspecified asthma, uncomplicated (principal); G47.33 Obstructive sleep apnea (adult) (pediatric); R91.8 Other nonspecific abnormal finding of lung field
CPT/HCPCS: 99214

== ENCOUNTER 2025-01-07 13:11 | Outpatient (AMB) | payer BC, SELFPAY ==
[2025-01-07 13:14] VITALS: BP 110/58; PULSE 79; O2SAT 98; BMI 30.8
--- NOTE | 2025-01-07 13:14 | A.OFFVIS_ITS ---
Vital Signs 01/07/25 13:14 Height 5 ft 2 in Weight 168 lb 8 oz BMI 30.8 BP 110/58 L Blood Pressure Location Lt brachial Position Sitting Pulse 79 Pulse Source Pulse Oximeter Pulse Oximetry (%) 98 Oxygen Delivery Method Room Air Intake Visit Reasons: Shortness of breath Allergies No Known Allergies Allergy (Verified 01/07/25 13:19) HPI HPI Shortness of breath: Details: Stephanie is a pleasant 59 year old female, former 30 pack-year smoker, quit in August 2024 with underlying history of asthma and SHANNON on CPAP therapy. Patient has been using Symbicort 160 mcg 2 inhalations b.i.d. with good effect, rarely using Combivent. She denies any visits to urgent care hospitalizations related to respiratory distress since the last visit. Today she presents to review compliance report for CPAP therapy. LDCT through [facility] RADS 2 and will have annual LDCT scheduled 05/2025. [facility] Social History (Updated 01/07/25 @ 13:19 by Bhavya Ruelas [facility]) Patient Tobacco Use Status: Former Tobacco user Tobacco use type: Cigarette Years Smoked: 30 Review of Systems Const Denies chills, Denies excessive sweating, Denies fever(s), Denies headache(s) and Denies night sweats Eyes Denies dry eyes, Denies irritation and Denies itchy eyes ENT Reports Normal hearing present, Denies headache(s), Denies nasal congestion, Denies nasal discharge, Denies post nasal drip and Denies sore throat Card Denies chest pain, Denies chest pain at rest, Denies chest pain with activity, Denies claudication, Denies leg edema, Denies dyspnea on exertion, Denies orthopnea and Denies paroxysmal nocturnal dyspnea Resp Denies chest congestion, Denies cough, Denies excessive phlegm production, Denies pain on inspiration, Denies pain with cough, Denies dyspnea on exertion, Denies stridor and Denies wheezing Neuro Reports Normal hearing present and Denies headache(s) Endo Denies excessive sweating Jose A/Lymph Denies lymphadenopathy Aller/Immun Denies itchy eyes, Denies seasonal rhinorrhea and Denies wheezing Physical Exam Vital Signs: Last Vital Signs Pulse 79 01/07/25 13:14 BP 110/58 L 01/07/25 13:14 Pulse Ox 98 01/07/25 13:14 Oxygen Delivery Method Room Air 01/07/25 13:14 BMI result Body Mass Index 30.8 Const General: cooperative, healthy appearing, comfortable, no acute distress, well developed and alert Orientation/consciousness: patient oriented x3 Limitations: no limitations HEENT Head: Yes normal to inspection, Yes normocephalic and Yes atraumatic Ears: hearing grossly normal bilaterally and external ears normal Eyes General: appearance normal, both eyes and all related structures Eyelids: Yes eyelids normal Sclerae: sclerae normal EOM: EOMs intact bilaterally Neck Neck: Yes normal visual inspection and Yes no lymphadenopathy Lymphatic: no lymphadenopathy noted Chest Chest palpation & inspection: normal inspection of the chest Resp Effort & Inspection: normal respiratory effort, able to speak in complete sentences, no audible wheezes, no cough, no stridor, not tachypneic, no tripod positioning and no use of accessory muscles Auscultation: clear to auscultation bilaterally Cardio Jugular venous distension: no JVD Rate: regular rate Rhythm: regular rhythm Skin Other: warm, dry General skin exam: no rashes or lesions noted Neuro General: patient oriented x3 Cranial nerves: Yes Normal hearing present Cognition (Neuro): normal cognition Gait exam (Neuro): Normal gait present Extrem General: Yes normal to inspection, Yes capillary refill normal, Yes no clubbing, cyanosis or edema and Yes no pedal edema Psych Appearance: grossly normal and well kempt Speech and movement: Normal speech and movement present and Clear speech present Affect: normal affect Attitude: cooperative Thought process: Normal thought process present Thought content: Normal thought content present Insight: Good insight present (Psych) Judgement: Good judgement present (Psych) Assessment & Plan Assessment & Plan (1) Asthma: Code(s): J45.909 - Unspecified asthma, uncomplicated Category: Medical (2) Obstructive sleep apnea: Code(s): G47.33 - Obstructive sleep apnea (adult) (pediatric) Category: Medical (3) Multiple pulmonary nodules: Code(s): R91.8 - Other nonspecific abnormal finding of lung field Category: Medical Plan Reviewed compliance report for the last 90 days and patient has been using greater than 4 hours 91% of the time, AHI 1.1 and mild to moderate leaking. She has been using CPAP therapy in APAP mode with pressures 5-16 cm H2O and benefitting from use. DME is [facility]. Previously leaking consistently moderate which she attributes to not switching out mask when due, has since improved. Applauded patient on smoking cessation and she is motivated to continue. LDCT 05/2024 RADS2 and will have annual LDCT scheduled through [facility]. All questions were answered and patient is in agreement of plan. Will follow up in 3-6 months or sooner if needed. Coding Level of Care Code Est Pt Level 4 (15418) Diagnoses Asthma J45.909 Obstructive sleep apnea G47.33 Multiple pulmonary nodules R91.8
== END 2025-01-07 13:36 | disposition home or self-care (01) ==
PROVIDERS: PCP Internal Medicine; Visit Provider Nurse Practitioner Family
DX: J45.909 Unspecified asthma, uncomplicated (principal); G47.33 Obstructive sleep apnea (adult) (pediatric); R91.8 Other nonspecific abnormal finding of lung field
CPT/HCPCS: 99214